=== PATIENT | male | born 1955 | race Caucasian/White ===

== ENCOUNTER 2017-05-07 13:00 | Emergency (ER) | payer BC ==
[2017-05-07] MEDS ORDERED: IOHEXOL 350 MG/ML 10 ML VIAL (for RAD DIAG) IVCONTRAST ONE (13:01)
[2017-05-07 13:04] VITALS: BP 143/86; PULSE 72; RESP 24; TEMP 97.1; O2SAT 96
[2017-05-07] MEDS ORDERED: ICOS1CAP PO (13:56)
[2017-05-07] MEDS ORDERED: ALLO300T2 PO (13:56)
[2017-05-07] MEDS ORDERED: METR-1 PO (13:56)
[2017-05-07] MEDS ORDERED: HYOS1TAB9 PO (13:56)
[2017-05-07] MEDS ORDERED: NITR.3 SL (13:56)
[2017-05-07] MEDS ORDERED: METF-382 PO (13:56)
[2017-05-07] MEDS ORDERED: ERGO2000 PO (13:56)
[2017-05-07] MEDS ORDERED: FENO145T2 PO (13:56)
[2017-05-07] MEDS ORDERED: GLIM4TAB PO (13:56)
[2017-05-07] MEDS ORDERED: ZOLP5TAB3 PO (13:56)
[2017-05-07] MEDS ORDERED: LISI-519 PO (13:56)
[2017-05-07] MEDS ORDERED: CIPR-9 PO (13:56)
[2017-05-07] MEDS ORDERED: METO1TAB9 PO (13:56)
[2017-05-07] MEDS ORDERED: ATOR40TA16 PO (13:56)
[2017-05-07] MEDS ORDERED: ONDANSETRON HCL 4 MG/2 ML VIAL IV ONE (14:00)
[2017-05-07] MEDS ORDERED: SODIUM CHLOR 0.9% 1000 ML INJ 1,000 ML IV ONE (14:00)
[2017-05-07 14:02] LABS: BILIRUBIN, URINE NEG (NEG); BLOOD, URINE NEG (NEG); GLUCOSE,URINE NEG (NEG); KETONE, URINE NEG (NEG); NITRITE,URINE NEG (NEG); PH, URINE 7.5 (5.0-8.5); SQUAMOUS EPITHELIAL CELL URINE 1 /hpf (0-5); URINE COLOR LIGHT-YELLOW (YELLW/STRAW); URINE LEUKOCYTE ESTERASE NEG (NEG)
[2017-05-07 14:05] LABS: AUTOMATED NEUTROPHIL # 7.8 TH/MM3 (1.8-7.7); BASOPHIL % 0.4 % (0.0-2.0); EOSINOPHIL # 0.1 TH/MM3 (0-0.4); HEMATOCRIT 51.6 % (39.0-51.0); HEMOGLOBIN 17.7 GM/DL (13.0-17.0); LYMPH % 15.7 % (9.0-44.0); LYMPHOCYTE # 1.7 TH/MM3 (1.0-4.8); MEAN CELL VOLUME 90.1 FL (80.0-100.0); MEAN CORPUSCULAR HEMOGLOBIN 30.9 PG (27.0-34.0); MEAN CORPUSCULAR HGB CONC 34.3 % (32.0-36.0); MEAN PLATELET VOLUME 8.7 FL (7.0-11.0); MONO % 9.4 % (0.0-8.0); NEUT % 73.5 % (16.0-70.0); PLATELET COUNT 215 TH/MM3 (150-450); RED BLOOD COUNT 5.73 MIL/MM3 (4.50-5.90); RED CELL DISTRIBUTION WIDTH 14.3 % (11.6-17.2); WHITE BLOOD COUNT 10.6 TH/MM3 (4.0-11.0)
[2017-05-07 14:10] LABS: INTERNATIONAL NORMALIZED RATIO 1.1 RATIO; PROTHROMBIN TIME - PATIENT 11.2 SEC (9.8-11.6)
--- NOTE | 2017-05-07 14:26 | PD ---
HPI Chief Complaint: GI Complaint Time Seen by Provider: 13:52 Travel History International Travel<30 days: No Contact w/Intl Traveler<30days: No Traveled to known affect area: No History of Present Illness HPI Medical decision making This 61-year-old man presents to the emergency department complaining of left- sided abdominal pain, lightheadedness and dizziness, weakness. Symptoms started about 5 or 6 days ago. He went to an urgent care 3 days ago. He had dark-colored urine at that time as well. He was diagnosed empirically with diverticulitis. Urine was negative. He was given Cipro Flagyl and medicine for abdominal cramping. Patient's been taking those medications but he feels like they have been making him feel more sick, more nausea lightheadedness weakness. Is been drinking fluids only. Is a history of diverticulitis one time in the past. No other complaints. History Past Medical History Narrative Medical Gout Hypertension Hyperlipidemia Prostate cancer Diabetes Influenza Vaccination: No Social History Alcohol Use: Yes (occas) Tobacco Use: No Allergies-Medications (Allergen,Severity, Reaction): Coded Allergies: No Known Allergies (Unverified , 05/07/17) Reported Meds & Prescriptions Reported Meds & Active Scripts Active Reported Cipro (Ciprofloxacin HCl) 500 Mg Tab 500 Mg PO BID Zolpidem (Zolpidem Tartrate) 5 Mg Tab 5 Mg PO HS PRN Vascepa (Icosapent) 1 Gram Cap 2 Gm PO BID Nitrostat SL (Nitroglycerin) 0.3 Mg Subl 0.3 Mg SL DIRECTED PRN ONE TABLET UNDER THE TONGUE NEEDED FOR CHEST PAIN, MAY REPEAT EVERY FIVE MINUTES FOR A TOTAL OF 3 DOSES OR CALL 911 IF NO RELIEF Metoprolol Succinate ER 24 HR (Metoprolol Succinate) 50 Mg Tab 50 Mg PO DAILY Atorvastatin (Atorvastatin Calcium) 40 Mg Tab 40 Mg PO HS Vitamin D2 (Ergocalciferol) 2,000 Unit Tab 50,000 Units PO WEEKLY Allopurinol 300 Mg Tab 300 Mg PO DAILY Lisinopril 5 Mg Tab 5 Mg PO DAILY Metformin ER (Metformin HCl) 1,000 Mg Maritza 1,000 Mg PO BID With evening meal Fenofibrate 145 Mg Tab 145 Mg PO DAILY Glimepiride 4 Mg Tab 4 Mg PO BIDAC Hyoscyamine (Hyoscyamine Sulfate) 0.125 Mg Tab 0.125 Mg PO Q4H PRN Flagyl (Metronidazole) 500 Mg Tab 500 Mg PO TID Review of Systems Except as stated in HPI: all other systems reviewed are Neg Physical Exam Narrative GENERAL: Well-appearing 61-year-old man, little bit unwell, nontoxic. SKIN: Focused skin cool. No rash. HEAD: Atraumatic. Normocephalic. EYES: Pupils equal and round. No scleral icterus. No injection or drainage. ENT: No nasal bleeding or discharge. Mucous membranes pink and moist. NECK: Trachea midline. No JVD. CARDIOVASCULAR: Regular rate and rhythm. No murmur appreciated. RESPIRATORY: No accessory muscle use. Clear to auscultation. Breath sounds equal bilaterally. GASTROINTESTINAL: Abdomen is obese and soft. Minimal left-sided tenderness. MUSCULOSKELETAL: No obvious deformities. No edema NEUROLOGICAL: Awake and alert. No obvious cranial nerve deficits. Motor grossly within normal limits. Normal speech. PSYCHIATRIC: Appropriate mood and affect; insight and judgment normal. Data Data Last Documented VS Vital Signs Date Time Temp Pulse Resp B/P (MAP) Pulse Ox O2 Delivery O2 Flow Rate FiO2 05/07/17 13:04 97.1 72 24 143/86 (105) 96 Orders Orders Complete Blood Count With Diff (05/07/17 13:07) Basic Metabolic Panel (Bmp) (05/07/17 13:07) Act Partial Throm Time (Ptt) (05/07/17 13:07) Prothrombin Time / Inr (Pt) (05/07/17 13:07) Urinalysis - C+S If Indicated (05/07/17 13:07) Lipase (05/07/17 13:07) Electrocardiogram (05/07/17 ) Ct Abd/Pel W Iv Contrast(Rout) (05/07/17 ) Iv Access Insert/Monitor (05/07/17 13:59) Sodium Chlor 0.9% 1000 Ml Inj (Ns 1000 M (05/07/17 14:00) Ondansetron Inj (Zofran Inj) (05/07/17 14:00) Iohexol 350 Inj (Omnipaque 350 Inj) (05/07/17 13:01) Labs Laboratory Tests Test 05/07/17 13:25 05/07/17 13:30 White Blood Count 10.6 TH/MM3 Red Blood Count 5.73 MIL/MM3 Hemoglobin 17.7 GM/DL Hematocrit 51.6 % Mean Corpuscular Volume 90.1 FL Mean Corpuscular Hemoglobin 30.9 PG Mean Corpuscular Hemoglobin Concent 34.3 % Red Cell Distribution Width 14.3 % Platelet Count 215 TH/MM3 Mean Platelet Volume 8.7 FL Neutrophils (%) (Auto) 73.5 % Lymphocytes (%) (Auto) 15.7 % Monocytes (%) (Auto) 9.4 % Eosinophils (%) (Auto) 1.0 % Basophils (%) (Auto) 0.4 % Neutrophils # (Auto) 7.8 TH/MM3 Lymphocytes # (Auto) 1.7 TH/MM3 Monocytes # (Auto) 1.0 TH/MM3 Eosinophils # (Auto) 0.1 TH/MM3 Basophils # (Auto) 0.0 TH/MM3 CBC Comment DIFF FINAL Differential Comment Prothrombin Time 11.2 SEC Prothromb Time International Ratio 1.1 RATIO Activated Partial Thromboplast Time 26.8 SEC Blood Urea Nitrogen 16 MG/DL Creatinine 1.61 MG/DL Random Glucose 60 MG/DL Calcium Level 10.3 MG/DL Sodium Level 138 MEQ/L Potassium Level 4.1 MEQ/L Chloride Level 107 MEQ/L Carbon Dioxide Level 20.1 MEQ/L Anion Gap 11 MEQ/L Estimat Glomerular Filtration Rate 44 ML/MIN Lipase 248 U/L Urine Color LIGHT-YELLOW Urine Turbidity CLEAR Urine pH 7.5 Urine Specific [place] 1.004 Urine Protein NEG mg/dL Urine Glucose (UA) NEG mg/dL Urine Ketones NEG mg/dL Urine Occult Blood NEG Urine Nitrite NEG Urine Bilirubin NEG Urine Urobilinogen LESS THAN 2.0 MG/DL Urine Leukocyte Esterase NEG Urine Squamous Epithelial Cells 1 /hpf Microscopic Urinalysis Comment CULT NOT INDICATED MDM Medical Decision Making Medical Screen Exam Complete: Yes Emergency Medical Condition: Yes Interpretation(s) LABS: CBC remarkable for mild elevated H&H. BMP Coags unremarkable UA unremarkable CT abdomen pelvis: Hepatic steatosis. Uncomplicated colonic diverticulosis. Bilateral renal cysts. Lumbar facet arthropathy. No acute process. Differential Diagnosis Diverticulitis, rupture, aortic disease, renal lithiasis, other Narrative Course Medical decision making 61-year-old male presents to the emergency department complaining of left-sided abdominal pain and feeling poorly. Looks a little bit clammy. Diverticulitis seems possible. Aortic disease seems unlikely. Renal lithiasis also seems unlikely. Will check labs, u CT, UA, reassess. FINAL: CT scans unremarkable. Labs look okay. Likely some dehydration. Could be related to adverse effect of the medication. Will give some Zofran. Recommend that he stop the Cipro discontinue the Flagyl to see if this will reduce the amount of GI upset. Diagnosis Primary Impression: Lightheadedness Additional Instructions: Stop Cipro. Continue Flagyl. Do not drink alcohol while taking this. Drink plenty fluids and eat a regular diet. Follow-up with her primary doctor in the next 2-4 days. Return to the emergency department for any new or worsening symptoms. Med/Other Pt SpecificInfo: Prescription(s) given Scripts Ondansetron Odt (Zofran Odt) 4 Mg Tab 4 MG SL Q8HR Y for Nausea/Vomiting, #15 TAB 0 Refills Prov: Julio Maxwell MD 05/07/17 Disposition: 01 DISCHARGE HOME Condition: Stable Julio Maxwell MD May 07, 2017 14:26
[2017-05-07 14:35] LABS: BICARBONATE 20.1 MEQ/L (21.0-32.0); CALCIUM 10.3 MG/DL (8.5-10.1); CREATININE 1.61 MG/DL (0.60-1.30)
--- NOTE | 2017-05-07 15:05 | RADRPT ---
EXAM DATE/TIME: 05/07/2017 14:47 [facility] COMPARISON: No previous studies available for comparison. INDICATIONS : Left sided abdominal pain. IV CONTRAST: 96 cc Omnipaque 350 (iohexol) IV ORAL CONTRAST: No oral contrast ingested. RADIATION DOSE: 1926 CTDIvol (mGy) MEDICAL HISTORY : Hypertension. Pancreatitis. Hernia, hiatal.diverticulitis SURGICAL HISTORY : None. ENCOUNTER: Initial ACUITY: 1 day PAIN SCALE: 8/10 LOCATION: Left Abdomen TECHNIQUE: Volumetric scanning of the abdomen and pelvis was performed. Using automated exposure control and ad justment of the mA and/or kV according to patient size, radiation dose was kept as low as reasonably achievable to obtain optimal diagnostic quality images. DICOM format image data is available electro nically for review and comparison. FINDINGS: LOWER LUNGS: The visualized lower lungs are clear. LIVER: The liver is diffusely hypodense. There are no focal lesions or evidence of biliary duct dilatation. SPLEEN: Normal size without lesion. PANCREAS: Within normal limits. KIDNEYS: Bilateral simple renal cysts are identified. The largest is located in the left kidney extending off the superior cortical margin. It measures 3.6 cm in size. There is no evidence of hydronephrosis. The re are no suspicious renal masses. ADRENAL GLANDS: Within normal limits. VASCULAR: There is no aortic aneurysm. BOWEL/MESENTERY: Scattered colonic diverticula are noted. The stomach, small bowel, and colon demonstrate no acute abn ormality. There is no free intraperitoneal air or fluid. ABDOMINAL WALL: Within normal limits. RETROPERITONEUM: There is no lymphadenopathy. BLADDER: No wall thickening or mass. REPRODUCTIVE: Within normal limits. INGUINAL: There is no lymphadenopathy or hernia. MUSCULOSKELETAL: Moderate facet arthropathy is seen at the lumbosacral junction. CONCLUSION: 1. Hepatic steatosis 2. Uncomplicated colonic diverticulosis. 3. Bilateral renal cysts. 4. Lower lumbar facet arthropathy. 5. No acute process. Amauri Chauhan MD on May 07, 2017 at 14:58 Board Certified Radiologist. This report was verified electronically.
[2017-05-07] MEDS ORDERED: ZOFR4TAB3 SL (15:14)
--- NOTE | 2017-05-08 12:19 | EKG ---
Date Performed: 05/07/2017 Time Performed: 13:34:57 PTAGE: 61 years EKG: Sinus rhythm POSSIBLE LATERAL MYOCARDIAL INFARCTION BORDERLINE ECG NO PREVIOUS TRACING DOCTOR: Poncho Mancuso Interpretating Date/Time 05/08/2017 12:16:28
== END 2017-05-07 15:53 | disposition home or self-care (01) ==
LOC: NEPD 13:00
DX: R42 Dizziness and giddiness (principal); E11.9 Type 2 diabetes mellitus without complications; E78.5 Hyperlipidemia, unspecified; I10 Essential (primary) hypertension; Z79.84 Long term (current) use of oral hypoglycemic drugs
CPT/HCPCS: 74177; 80048; 81001; 83690; 85025; 85610; 85730; 93005; 96374; 99285; J2405; J7030; Q9967